=== PATIENT | male | born 1980 ===

== ENCOUNTER 2020-10-29 16:15 | Emergency (ER) | payer SELFPAY ==
[~2020-10-29] VITALS: Ht 175.3 cm; Wt 74.8 kg
[2020-10-29] MEDS ORDERED: LIDOCAINE HCL 1% 20 ML VIAL IJ ONE (17:45)
[2020-10-29] MEDS ORDERED: MORPHINE SULFATE 4 MG/1 ML DISP.SYRIN IM ONE (17:45)
[2020-10-29] MEDS ORDERED: KETOROLAC TROMETHAMINE 60 MG INJ IM ONE ×2 (17:45→17:49)
[2020-10-29] MEDS ORDERED: MORPHINE SULFATE 4 MG/1 ML DISP.SYRIN ONE (17:48)
[2020-10-29] MEDS ORDERED: NEOMY/BACITRA/POLYMYXIN B OINT UD PACKET TP ONE ×2 (18:30→18:37)
[2020-10-29] MEDS ORDERED: SULFAMETH/TRIMETH 800/160 MG TABLET PO ONE (18:30)
[2020-10-29] MEDS ORDERED: SULF1TAB48 PO (18:32)
[2020-10-29] MEDS ORDERED: SULFAMETH/TRIMETH 800/160 MG TABLET ONE (18:37)
[2020-10-29] MEDS ORDERED: LIDOCAINE HCL 1% 20 ML VIAL ONE (18:37)
--- NOTE | 2020-10-29 18:51 | NUR ---
Patient was given written and verbal discharge instructions. Patient verbalized understanding & compliance of instructions. Patient is ambulatory with steady gait. Patient refused offer of long-term placement. Patient was given a list of available shelters in surrounding area.
== END 2020-10-29 18:55 | disposition home or self-care (01) ==
LOC: ER 16:20
DX: L03.011 Cellulitis of right finger (principal); F17.210 Nicotine dependence, cigarettes, uncomplicated
CPT/HCPCS: 26010; 96372 ×2; 99284; 99406; J1885; J2270; J3490; A4217; A4663